=== PATIENT | female | born 1955 ===

== ENCOUNTER 2021-05-20 08:15 | Outpatient (CLI) | payer OTHER | END 2021-05-20 08:17 | disposition home or self-care (01) | LOC: SONOGRAMA 08:15 | PROVIDERS: ATTEND Pathology Anatomic Pathology & Clinical Pathology | DX: D34 Benign neoplasm of thyroid gland (principal); E04.1 Nontoxic single thyroid nodule; E06.3 Autoimmune thyroiditis ==